=== PATIENT | female | born 1960 | race Two or more races ===

== ENCOUNTER 2017-08-23 10:59 | Emergency (ER) | payer OTHER ==
[~2017-08-23] VITALS: Ht 152.4 cm; Wt 110.2 kg
[~2017-08-23 10:59] MED LIST: ADVAIR HFA 115/12 GM; AVAPRO300 MG; NORVASC5 MG; TRAMADOL HCL-AP1 TAB
[2017-08-23] MEDS ORDERED: MEDROLPACK PO (14:49)
== END 2017-08-23 14:52 | disposition home or self-care (01) ==
LOC: ER 10:59
DX: M54.5 Low back pain (principal)

== ENCOUNTER 2017-11-01 08:29 | Inpatient (IN) | payer OTHER ==
[~2017-11-01] VITALS: Ht 152.4 cm; Wt 108.9 kg
[~2017-11-01 08:29] MED LIST changes: +MEDROLPACK PO
[2017-11-01] MEDS ORDERED: METFORMIN HCL500 M2 (08:33)
[2017-11-05] MEDS ORDERED: LEVOTHYROXINE25 MCG PO (11:47)
[2017-11-05] MEDS ORDERED: MONTELUKAST SOD10 MG PO (11:47)
[2017-11-05] MEDS ORDERED: AVAPRO300 MG PO (11:47)
[2017-11-05] MEDS ORDERED: NORVASC5 MG PO (11:47)
[2017-11-05] MEDS ORDERED: HYDROCODONE-CH115 ML PO (11:47)
[2017-11-05] MEDS ORDERED: XOPENEX0.63 MG/3 IH (11:47)
[2017-11-05] MEDS ORDERED: GABAPENTIN300 MG PO (11:47)
[2017-11-05] MEDS ORDERED: METFORMIN HCL500 M2 PO (11:47)
[2017-11-05] MEDS ORDERED: BUDEO.25 IH (11:47)
[2017-11-05] MEDS ORDERED: B-122500 MCG SL (11:47)
[2017-11-05] MEDS ORDERED: OSEL75CA PO (11:47)
[2017-11-05] MEDS ORDERED: HYDROCHLOROTH12.5 M1 PO (11:47)
[2017-11-05] MEDS ORDERED: LEVAQUIN750 MG PO (11:47)
[2017-11-05] MEDS ORDERED: BENZONATATE200 M1 PO (11:47)
[2017-11-05] MEDS ORDERED: MEDROLPACK PO (11:47)
== END 2017-11-05 13:20 | disposition home or self-care (01) | DRG 194 ==
LOC: ER 08:29 → MEDI 18:44
PROC: 3E0F7GC Introduction of Other Therapeutic Substance into Respiratory Tract, Via Natural or Artificial Opening (ICD-10-PCS; principal; 2017-11-01)
PROC: 4A033R1 Measurement of Arterial Saturation, Peripheral, Percutaneous Approach (ICD-10-PCS; 2017-11-01)
PROC: BW24ZZZ Computerized Tomography (CT Scan) of Chest and Abdomen (ICD-10-PCS; 2017-11-01)
DX: J18.9 Pneumonia, unspecified organism (principal); J45.31 Mild persistent asthma with (acute) exacerbation; R09.02 Hypoxemia; E66.01 Morbid (severe) obesity due to excess calories; I11.9 Hypertensive heart disease without heart failure; E11.9 Type 2 diabetes mellitus without complications; E03.8 Other specified hypothyroidism; K29.60 Other gastritis without bleeding

== ENCOUNTER 2017-12-03 08:34 | Outpatient (CLI) | payer OTHER ==
[~2017-12-03 08:34] MED LIST changes: +AVAPRO300 MG PO; +B-122500 MCG SL; +BENZONATATE200 M1 PO; +BUDEO.25 IH; +GABAPENTIN300 MG PO; +HYDROCHLOROTH12.5 M1 PO; +HYDROCODONE-CH115 ML PO; +LEVAQUIN750 MG PO; +LEVOTHYROXINE25 MCG PO; +METFORMIN HCL500 M2; +METFORMIN HCL500 M2 PO; +MONTELUKAST SOD10 MG PO; +NORVASC5 MG PO; +OSEL75CA PO; +XOPENEX0.63 MG/3 IH
== END 2017-12-03 08:48 | disposition home or self-care (01) ==
LOC: LAB 08:34
DX: D50.9 Iron deficiency anemia, unspecified (principal); E03.9 Hypothyroidism, unspecified; E78.2 Mixed hyperlipidemia; I11.9 Hypertensive heart disease without heart failure; E56.8 Deficiency of other vitamins; N39.0 Urinary tract infection, site not specified; Z12.11 Encounter for screening for malignant neoplasm of colon; R19.5 Other fecal abnormalities; E55.9 Vitamin D deficiency, unspecified; N19 Unspecified kidney failure; R80.9 Proteinuria, unspecified

== ENCOUNTER 2017-12-03 09:28 | Outpatient (CLI) | payer OTHER | END 2017-12-03 09:33 | disposition home or self-care (01) | LOC: RAD 09:28 | DX: J18.9 Pneumonia, unspecified organism (principal) ==

== ENCOUNTER 2018-01-22 09:23 | Outpatient (CLI) | payer OTHER | END 2018-01-22 15:05 | disposition home or self-care (01) | LOC: LAB 09:23 | DX: R07.89 Other chest pain (principal); M13.871 Other specified arthritis, right ankle and foot; M13.872 Other specified arthritis, left ankle and foot; M13.862 Other specified arthritis, left knee; M13.861 Other specified arthritis, right knee ==

== ENCOUNTER 2018-01-26 13:30 | Inpatient (IN) | payer OTHER ==
[~2018-01-26] VITALS: Ht 152.4 cm; Wt 113.9 kg
== END 2018-02-04 19:05 | DRG 469 ==
LOC: O/R 02-01 06:30 → SURH 02-01 13:30
PROVIDERS: Orthopaedic Surgery
PROC: 3E0F7GC Introduction of Other Therapeutic Substance into Respiratory Tract, Via Natural or Artificial Opening (ICD-10-PCS; 2018-02-01)
PROC: 0SRD0J9 Replacement of Left Knee Joint with Synthetic Substitute, Cemented, Open Approach (ICD-10-PCS; principal; 2018-02-01 13:45)
DX: M17.12 Unilateral primary osteoarthritis, left knee (principal); J18.8 Other pneumonia, unspecified organism; D62 Acute posthemorrhagic anemia; K56.50 Intestinal adhesions [bands], unspecified as to partial versus complete obstruction; M85.462 Solitary bone cyst, left tibia and fibula; E03.8 Other specified hypothyroidism; E11.9 Type 2 diabetes mellitus without complications; I11.9 Hypertensive heart disease without heart failure; J45.909 Unspecified asthma, uncomplicated; E66.01 Morbid (severe) obesity due to excess calories; E53.8 Deficiency of other specified B group vitamins; R09.02 Hypoxemia; G47.33 Obstructive sleep apnea (adult) (pediatric)

== ENCOUNTER 2018-10-30 13:37 | Emergency (ER) | payer OTHER ==
[~2018-10-30] VITALS: Ht 152.4 cm; Wt 104.3 kg
== END 2018-10-30 18:07 | disposition home or self-care (01) ==
LOC: ER 13:37
DX: M62.830 Muscle spasm of back (principal); M54.5 Low back pain

== ENCOUNTER 2019-01-25 14:07 | Outpatient (CLI) | payer OTHER | END 2019-01-25 14:17 | disposition home or self-care (01) | LOC: LAB 14:07 | DX: J11.1 Influenza due to unidentified influenza virus with other respiratory manifestations (principal); A49.8 Other bacterial infections of unspecified site; J20.8 Acute bronchitis due to other specified organisms ==

== ENCOUNTER 2019-05-04 07:07 | Outpatient (CLI) | payer OTHER | END 2019-05-04 07:22 | disposition home or self-care (01) | LOC: LAB 07:07 | DX: D50.8 Other iron deficiency anemias (principal); E03.8 Other specified hypothyroidism; E78.2 Mixed hyperlipidemia; I11.9 Hypertensive heart disease without heart failure; E56.8 Deficiency of other vitamins; N39.0 Urinary tract infection, site not specified; Z12.11 Encounter for screening for malignant neoplasm of colon; R19.5 Other fecal abnormalities ==

== ENCOUNTER 2019-05-04 07:57 | Outpatient (CLI) | payer OTHER | END 2019-05-04 07:59 | disposition home or self-care (01) | LOC: RAD 07:57 | DX: M25.561 Pain in right knee (principal); M25.562 Pain in left knee ==

== ENCOUNTER 2019-05-11 12:56 | Outpatient (CLI) | payer OTHER | END 2019-05-11 13:04 | disposition home or self-care (01) | LOC: LAB 12:56 | DX: D50.8 Other iron deficiency anemias (principal); E03.8 Other specified hypothyroidism; E78.2 Mixed hyperlipidemia; E11.9 Type 2 diabetes mellitus without complications; E56.8 Deficiency of other vitamins; N39.0 Urinary tract infection, site not specified ==

== ENCOUNTER 2019-09-07 10:58 | Emergency (ER) | payer OTHER ==
[~2019-09-07] VITALS: Ht 165.1 cm; Wt 108.9 kg
[2019-09-07] MEDS ORDERED: ALBUTEROL1.25 MG/3 IH (17:20)
[2019-09-07] MEDS ORDERED: TUSNEL LIQUID178 ML PO (17:20)
[2019-09-07] MEDS ORDERED: ZITHROMAX500 MG PO (17:20)
== END 2019-09-07 17:44 | disposition home or self-care (01) ==
LOC: ER 10:58
DX: J45.998 Other asthma (principal)

== ENCOUNTER 2020-02-13 07:55 | Outpatient (CLI) | payer OTHER ==
[~2020-02-13 07:55] MED LIST changes: +ALBUTEROL1.25 MG/3 IH; +TUSNEL LIQUID178 ML PO; +ZITHROMAX500 MG PO
== END 2020-02-13 08:02 | disposition home or self-care (01) ==
LOC: LAB 07:55
DX: D50.8 Other iron deficiency anemias (principal); E03.8 Other specified hypothyroidism; E78.2 Mixed hyperlipidemia; I11.9 Hypertensive heart disease without heart failure; E56.8 Deficiency of other vitamins; N39.0 Urinary tract infection, site not specified; Z12.11 Encounter for screening for malignant neoplasm of colon; E55.9 Vitamin D deficiency, unspecified; N19 Unspecified kidney failure; E11.9 Type 2 diabetes mellitus without complications; R80.8 Other proteinuria; C18.0 Malignant neoplasm of cecum; K92.1 Melena

== ENCOUNTER 2020-02-13 09:49 | Outpatient (CLI) | payer OTHER | END 2020-02-13 10:07 | disposition home or self-care (01) | LOC: MAMO-SONO 09:49 | PROVIDERS: ATTEND Internal Medicine Geriatric Medicine | DX: Z12.31 Encounter for screening mammogram for malignant neoplasm of breast (principal); C50.919 Malignant neoplasm of unspecified site of unspecified female breast; N63.10 Unspecified lump in the right breast, unspecified quadrant; N63.20 Unspecified lump in the left breast, unspecified quadrant; N64.4 Mastodynia; N60.12 Diffuse cystic mastopathy of left breast; N60.11 Diffuse cystic mastopathy of right breast ==

== ENCOUNTER → 2020-02-19 14:46 | Outpatient (CLI) | payer OTHER | END | disposition home or self-care (01) | LOC: LAB 14:46 | PROVIDERS: ATTEND Internal Medicine Gastroenterology | DX: R74.8 Abnormal levels of other serum enzymes (principal); E78.49 Other hyperlipidemia ==

== ENCOUNTER 2020-03-01 07:39 | Outpatient (CLI) | payer OTHER | END 2020-03-01 07:44 | disposition home or self-care (01) | LOC: SONOGRAMA 07:39 → MAMO-SONO 07:45 | PROVIDERS: ATTEND Internal Medicine Gastroenterology | DX: K31.89 Other diseases of stomach and duodenum (principal); R10.13 Epigastric pain; R10.84 Generalized abdominal pain ==

== ENCOUNTER 2021-11-02 15:18 | Emergency (ER) | payer OTHER ==
[~2021-11-02] VITALS: Ht 152.4 cm; Wt 113.4 kg
[2021-11-02] MEDS ORDERED: CARAFATE1 GM PO (15:39)
== END 2021-11-02 16:37 | disposition home or self-care (01) ==
LOC: ER 15:18
DX: H60.92 Unspecified otitis externa, left ear (principal); Z91.013 Allergy to seafood; Z91.018 Allergy to other foods

== ENCOUNTER 2021-11-05 10:00 | Outpatient (CLI) | payer OTHER ==
[~2021-11-05 10:00] MED LIST changes: +CARAFATE1 GM PO
== END 2021-11-05 10:01 | disposition home or self-care (01) ==
LOC: NUCLEAR 10:00
PROVIDERS: ATTEND Internal Medicine Pulmonary Disease
DX: J45.50 Severe persistent asthma, uncomplicated (principal)

== ENCOUNTER 2022-10-29 14:56 | Emergency (ER) | payer OTHER ==
[~2022-10-29] VITALS: Ht 152.4 cm; Wt 114.3 kg
== END 2022-10-29 18:19 | disposition home or self-care (01) ==
LOC: ER 14:56
DX: M62.830 Muscle spasm of back (principal); I10 Essential (primary) hypertension; E11.9 Type 2 diabetes mellitus without complications; Z79.84 Long term (current) use of oral hypoglycemic drugs; Z91.013 Allergy to seafood

== ENCOUNTER 2024-04-24 11:32 | Emergency (ER) | payer OTHER ==
[~2024-04-24] VITALS: Ht 152.4 cm; Wt 108.9 kg
== END 2024-04-24 18:36 | disposition home or self-care (01) ==
LOC: ER 11:33
DX: N64.59 Other signs and symptoms in breast (principal); E03.8 Other specified hypothyroidism; I10 Essential (primary) hypertension; Z85.528 Personal history of other malignant neoplasm of kidney; Z88.0 Allergy status to penicillin; Z88.6 Allergy status to analgesic agent; Z88.2 Allergy status to sulfonamides; Z91.013 Allergy to seafood

== ENCOUNTER 2024-07-07 05:25 | Day surgery (SDC) | payer OTHER ==
[2024-07-07] MEDS ORDERED: CLINDAMYCIN PHOSPHATE 150 MG/ML (900mg) IV ONE (11:00)
[2024-07-07] MEDS ORDERED: VANCOMYCIN HCL 1,000 MG VIAL IR ONE (11:15)
[2024-07-07] MEDS ORDERED: EPINEPHRINE HCL/PF 1 MG/ML AMPUL IR ONE (11:15)
[2024-07-07] MEDS ORDERED: POVIDONE-IODINE SCRUB 118 ML BOTT TOP ONE (11:15)
[2024-07-07] MEDS ORDERED: POVIDONE-IODINE 118 ML BOTT TOP ONE (11:15)
[2024-07-07] MEDS ORDERED: SUGAMMADEX SODIUM 200 MG/2 ML VIAL IV ONE (14:30)
[2024-07-07] MEDS ORDERED: MORPHINE SULFATE 4 MG/ML VIAL IV ONE (15:35)
== END 2024-07-07 17:15 | disposition home or self-care (01) ==
LOC: CIR.AMB 05:25
PROVIDERS: ATTEND Surgery
DX: D05.11 Intraductal carcinoma in situ of right breast (principal); D05.12 Intraductal carcinoma in situ of left breast; N64.81 Ptosis of breast; R59.0 Localized enlarged lymph nodes; Z91.013 Allergy to seafood; Z90.13 Acquired absence of bilateral breasts and nipples